=== PATIENT | male | born 1955 | race Native Hawaiian/Other Pacific Islander ===

== ENCOUNTER 2020-10-15 15:57 | Outpatient (CLI) | payer OTHER | END 2020-10-15 19:06 | disposition home or self-care (01) | LOC: LAB 15:57 | PROVIDERS: ATTEND Nurse Practitioner Family | DX: Z20.822 Contact with and (suspected) exposure to COVID-19 (principal); H93.8X1 Other specified disorders of right ear | CPT/HCPCS: 86769 ==